=== PATIENT | male | born 1990 | race Caucasian/White ===

== ENCOUNTER 2016-12-01 16:03 | Emergency (ER) | payer MEDICAID ==
[~2016-12-01] VITALS: Ht 170.2 cm; Wt 75.0 kg
[2016-12-01] MEDS ORDERED: KETOROLAC 60MG/2ML VIAL IM ONE (17:00)
[2016-12-01 17:42] VITALS: BP 140/77
== END 2016-12-01 17:43 | disposition home or self-care (01) ==
LOC: ER 16:55
DX: R51 Headache (principal); H92.01 Otalgia, right ear; F17.200 Nicotine dependence, unspecified, uncomplicated; W22.03XA Walked into furniture, initial encounter; Y93.89 Activity, other specified; Y92.89 Other specified places as the place of occurrence of the external cause; Y99.8 Other external cause status
CPT/HCPCS: 96372; 99283; J1885